=== PATIENT | male | born 1945 | race Caucasian/White ===

== ENCOUNTER → 2024-05-13 10:35 | Outpatient (REF) | payer OTHER, SELFPAY | LOC: HWRCS 10:35 | PROVIDERS: ATTENDING PHYSICIAN Family Medicine | DX: I35.0 Nonrheumatic aortic (valve) stenosis (principal) | CPT/HCPCS: 93306 ==

== ENCOUNTER → 2024-06-22 12:16 | Outpatient (REF) | payer OTHER, SELFPAY | LOC: RCS 12:16 | PROVIDERS: ATTENDING PHYSICIAN Specialist; FAMILY PHYSICIAN Family Medicine | DX: M25.111 Fistula, right shoulder (principal); Z01.818 Encounter for other preprocedural examination | CPT/HCPCS: 73200; 93005 ==

== ENCOUNTER 2024-07-30 06:16 | Day surgery (SDC) | payer OTHER, SELFPAY ==
[2024-07-30] VITALS (11 sets, daily range): BP systolic 111–137; BP diastolic 54–79; BMI 27.3
[2024-07-30] MEDS: TYLENOL 1000 MG PO (07:59)
[2024-07-30] MEDS: CELEBREX 200 MG PO (07:59)
[2024-07-30 08:26] LABS: ALT (SGPT) 19 U/L (0-50); AST (SGOT) 25 U/L (17-59); Albumin 4.1 g/dl (3.5-5.0); Alkaline Phosphatase 99 U/L (38-126); Blood Urea Nitrogen 21 mg/dl (9-20); Calcium 9.1 mg/dl (8.4-10.2); Carbon Dioxide 21 mmol/L (22-30); Chloride 103 mmol/L (98-107); Estimated Creatinine Clearance 64 ml/min; Glucose 87 mg/dl (70-99); Potassium 4.3 mmol/L (3.5-5.1); Sodium 139 mmol/L (135-145); Total Bilirubin 0.6 mg/dl (0.2-1.3); Total Protein 6.4 g/dl (6.3-8.2); eGFR > 60.00
[2024-07-30] MEDS: ZOFRAN 4 MG IV (11:28)
[2024-07-30 12:05] LABS: Glycohemoglobin (HgbA1c) 4.9 % (4.0-5.6)
[2024-07-30] MEDS: ANCEF 5 IV (13:56)
== END 2024-07-30 14:09 | disposition home or self-care (01) ==
LOC: SDS 06:16
PROVIDERS: Physician Assistant; ATTENDING PHYSICIAN Specialist
DX: M12.811 Other specific arthropathies, not elsewhere classified, right shoulder (principal)
CPT/HCPCS: 23472; C1776; 73020; 80053; 83036; 86850; 86900; 86901; 87070

== ENCOUNTER → 2025-07-20 13:39 | Outpatient (REF) | payer OTHER, SELFPAY | LOC: RCS 13:39 | PROVIDERS: ATTENDING PHYSICIAN Family Medicine | DX: I35.0 Nonrheumatic aortic (valve) stenosis (principal) | CPT/HCPCS: 93306; 93356 ==